=== PATIENT | male | born 1990 | race Caucasian/White ===

== ENCOUNTER 2022-03-29 10:48 | Outpatient (CLI) | payer OTHER ==
[2022-03-29 11:56] VITALS: BP 110/70
--- NOTE | 2022-03-29 11:56 | SLEEP CARE CONSULTATION ---
Information from patient questionnaire entered by Jacquelyn Barroso MA. I have reviewed and concur with the information entered by Jacquelyn Barroso MA. This document represents the service I personally performed and the decisions made by me, Micaela John ARNP. History of Present Illness Service Date and Time: 03/29/2022 1048 Reason for Visit: New patient (INTITIAL ONSET 07/08/21) Chief Complaint: reports: Insomnia, Unrefreshed sleep, Snoring, Observed pauses in breathing, Frequent awakenings at night, Other (Sleep paralysis) Date of Onset: 1 yr Usual bedtime: 12am Time it takes to fall asleep: 1 hr Snores at night: Yes Observed to quit breathing while asleep: Yes Sleeps alone due to snoring: No Number of times waking at night: 2-3 times Reasons for waking at night: reports: Snoring, Other (unknown; has woke up with a "feeling of fear" couple times in last few months). denies: Choking, Gasping for air Toss, Turn, or Twitch while sleeping: Yes Recalls having dreams: Yes Usually gets out of bed at: 7am Feels refreshed in the morning: No Morning headache: Yes (2 times a week; last 1-2 hrs to all day; sometimes takes Excedrine) Sleepy or fatigued during the day: Yes Ever fallen asleep while driving: Yes (drowsy driving; no accidents) Takes day naps: Yes (rarely on weekdays; occasional on weekends) Dreams during day naps: Yes Prior sleep studies: No Additional HPI information: I had the pleasure of seeing ISSA BAKER today regarding the possibility of him having a sleep disorder. His current complaints are snoring, frequent night awakenings and insomnia. He states that he is most concerned about the sleep paralysis that he is experiencing at least 2 times a week this last year. He gets them when he is falling asleep and when he is waking up. He has always had episodes of sleep paralysis but they used to be a couple times a month and now they are a couple times a week. He does snore loudly and has pauses in breathing when sleeping according to his girlfriend. He states he has trazodone 50 mg that he will take if he cannot fall asleep. He takes 45 mins to 1 hours to fall asleep normally. He wakes up a few times a night but can go back to sleep. He also experiences migraines after an episode of sleep paralysis. He does not wake up feeling rested normally. He is tired throughout the day and has experience drowsy driving. - Parasomnia Symptoms Ever been unable to move upon waking from sleep: Yes (2 times a week) Walks in sleep: No Talks in sleep: Yes Ever acted out dreams in sleep: No Ever felt weak in the knees when startled or emotional: Yes (has not fallen to ground; gets "shaky" feeling of body) Bothered by creepy, crawly, restless sensations in legs: No Problems with memory or concentration: Yes (little bit of both) Subjective Initial [place] Sleepiness Scale score: 18 (2021) Past Medical History Past Medical History: reports: Anxiety Social History The patient's occupation is a [employer]. Patient is Single and lives in . Have you smoked in the past 12 months: No (quit 3 years ago) Cigarettes per day (20/pack): 3 Years of smokin Smoking Pack Years: 1.0 Alcohol use: Yes Alcohol amount and frequency: 2-3 week Caffeine use: Yes Caffeine amount and frequency: 1 every 12 days, for workouts Family History Family history of sleep disordered breathing: No Family Hx Sleep Apnea: Father: Snoring, Sleep apnea - Untreated, Sibling: Snoring, Sleep apnea - Untreated Allergies and Home Medications Drug allergies reviewed: Yes (NKDA) Home medication list reviewed: Yes Allergy and home medication list: Medications: Trazodone 50 mg, prn Review of Systems Cardiovascular: reports: chest pain (random, sharp pain, 15 secs long; not often) Respiratory: reports: shortness of breath, wheeze Gastrointestinal: reports: heartburn Neurological: reports: headaches, head trauma (concussions, mild; in past) Psychiatric: reports: anxiety, depression Ear/Nose/Throat: reports: wisdom teeth removed. denies: sinus problems, dry mouth/throat, tonsillectomy Endocrine: reports: sluggishness Musculoskeletal: reports: joint pain, muscle pain or cramping Immunologic: reports: rash. denies: allergies to food or environment Physical Exam Vital signs obtained and entered by: SHEA Dwyer Blood Pressure: 110/70 (left arm) Cuff size: long Heart Rate: 83 O2 Saturation: 96 Height: 6 ft Weight: 222 lb Body Mass Index: 30.1 BMI Classification: Obese Neck circumference: 17 Mouth and throat: narrow oropharynx Soft palate: normal Hard palate: normal Uvula: normal Uvula visualization: 100% Mallampati Class I Tongue: enlarged in size with teeth burch on lateral edges Tonsils: small Neck: normal w/o lymphadenopathy or thyromegaly Heart: regular rate and rhythm Lungs: clear bilaterally Impression and Plan 1. Suspected Obstructive Sleep Apnea-Hypopnea Syndrome, as suggested by a history of loud and irregular snoring, observed cessation of breath while asleep, morning headache, frequent awakening during the night, unrefreshed sleep, cognitive impairment, and excessive daytime sleepiness. Narrow oropharynx and obesity are common predisposing factors for obstructive sleep apnea-hypopnea syndrome. I recommend proceeding to polysomnography to confirm the diagnosis and to assess severity. If the patient has significant sleep disordered breathing, a manual CPAP titration study will also be performed to find the optimal treatment pressure. I informed the patient of what the sleep studies involve and after some discussion, obtained agreement to proceed. The pathophysiology of obstructive sleep apnea-hypopnea syndrome was discussed with the patient and health risks of cardiovascular and cerebrovascular disease if not treated. Risks of drowsy driving discussed in detail and patient advised to avoid long distance driving and to tire groover at the first sign of drowsiness. Patient agreed to plan. * Schedule polysomnography * Avoid long distance driving or driving when feeling sleepy. * Avoid alcohol, sedative and muscle relaxant around bedtime. * Attempt to lose weight. * Review instructions provided by trained office staff on how to prepare for the sleep study. * Return for follow-up after sleep study completed. Counseling Topics: Weight loss health impact Visit Type: In Office (INTITIAL ONSET 07/08/21) Time Spent with Patient (minutes): 34 Provider Statement: I spent 100% of the Face to Face Visit with the patient with greater than 50% spent counseling the patient and coordination of care.
== END 2022-03-29 10:49 | disposition home or self-care (01) ==
LOC: SC 10:48
PROVIDERS: ATTEND Nurse Practitioner Family
DX: R06.83 Snoring (principal); G47.8 Other sleep disorders; R06.81 Apnea, not elsewhere classified; R51.9 Headache, unspecified; G47.10 Hypersomnia, unspecified; E66.9 Obesity, unspecified; Z68.30 Body mass index [BMI] 30.0-30.9, adult; Z87.891 Personal history of nicotine dependence
CPT/HCPCS: 99203; 99212

== ENCOUNTER 2022-05-06 20:38 | Outpatient (CLI) | payer OTHER | END 2022-05-06 20:39 | disposition home or self-care (01) | LOC: SC 20:38 | PROVIDERS: ATTEND Nurse Practitioner Family | DX: R06.83 Snoring (principal); G47.8 Other sleep disorders; R51.9 Headache, unspecified; G47.10 Hypersomnia, unspecified | CPT/HCPCS: 95810 ==

== ENCOUNTER 2022-07-12 12:49 | Outpatient (CLI) | payer OTHER ==
[2022-07-12 13:16] VITALS: BP 124/82
--- NOTE | 2022-07-12 13:16 | SLEEP CARE CONSULTATION ---
Information from patient questionnaire entered by Kim Villela. I have reviewed and concur with the information entered by Kim Villela. This document represents the service I personally performed and the decisions made by , Micaela John ARNP. History of Present Illness Service Date and Time: 07/12/2022 1249 Initial [place] Sleepiness Scale score: 18 (2021) Current [place] Sleepiness Scale score: 15 (07/12/22) Additional HPI information: ISSA BAKER returns for follow up and results of the recently performed polysomnography. The patient was informed of the following findings: No significant sleep disordered breathing with an average AHI of 2.1 and franc oxygen saturation of 92%. I explained the pathophysiology behind obstructive sleep apnea. Patient does not have sleep apnea and was advised how weight gain could increase the risk of developing sleep apnea in the future. I strongly advised weight loss. Patient has light snoring. Snoring can be reduced by weight loss. Weight loss is best achieved with diet consult. Patient instructed to contact PCP for referral. Snoring can also be treated with an oral appliance from a dentist. Advised to check insurance coverage. In addition, an ENT evaluation can be do to see if other treatment is indicated. Patient counseled not drink alcohol less than 4 hours before bedtime as it can increase snoring and apnea. Patient was cautioned about risks of drowsy driving until sleepiness symptoms resolve. Patient denies drowsy driving. Sleep Study - Results Type of Sleep Study: Polysomnography (COMLETED 05/06/22) Prior sleep studies: No Polysomnography/Home Sleep Study results: IMPRESSION: The quality of the study is good. The patient had reduced sleep efficiency due to a prolonged awakening in the middle of the night. The sleep architecture was normal. Respiratory monitoring showed no significant sleep disordered breathing (AHI = 2.1) or hypoxia (franc oxygen saturation of 92%). The few respiratory events occurred mainly during supine sleep (supine AHI = 3.8; non-supine = 1.10). Snore was infrequent and light in intensity. There was no significant periodic leg movement of sleep. Cardiac rhythm was normal sinus rhythm without significant arrhythmia. No abnormal behavior (parasomnia) observed during the night. Allergies and Home Medications Drug allergies reviewed: Yes (NKDA) Home medication list reviewed: Yes (no changes) Review of Systems Review of systems same as previous: Yes (no changes) Physical Exam Vital signs obtained and entered by: KIM Mar MA Blood Pressure: 124/82 (LEFT ARM) Cuff size: regular Heart Rate: 64 O2 Saturation: 96 Height: 6 ft Weight: 232 lb 6.4 oz Body Mass Index: 31.5 BMI Classification: Obese Impression and Plan 1. Insomnia, unspecified. Patient showed prolonged awakening during his sleep study and regularly takes up to 1 hour to fall asleep initially. His sleep efficiency was 73.4% during PSG. Insomnia is generally caused by an irregular sleep schedule, spending too much time in bed, napping, caffeine, electronics, lack of a relaxing bedtime ritual and clock watching. Other factors can include anxiety/depression, pain, medications, and obstructive sleep apnea. Patient is concerned that he still has incidences of sleep paralysis 1-2 times a week. Sleep paralysis upon awakening can be found in isolated incidences during REM sleep. The major cause of sleep paralysis is sleep deprivation which can be secondary to insomnia. Risk factors include young age, PTSD, chronic pain or depression. He does have a history of anxiety and was advised to visit with his PCP to review he current treatment plan. He voiced understanding and agreement. First I counseled the patient on the importance of a regular sleep schedule, starting with the wake time. I explained the homestatic sleep drive and how maintaining a regular wake time will allow the patient to be tired enough to sleep 15-16 hours later. By waking at the same time, the patient will also feel more alert. This can also be assisted by exposure to bright light for a minimum of 15 minutes a day upon waking. Most caffeine is to be stopped after lunch as it has a 6 hour half life and reduce sleep latency and efficiency. In addition, it is important to have a relaxing ritual about 30-60 minutes before bedtime to allow the mind/body transition from an active day to sleep. Electronics should be avoided 1-2 hours before bedtime as the bright light can reduce the endogenous melatonin and the activity of the computer, tablet, cell phone etc can be alerting. If unable to go to sleep in an estimated 20 minutes of more, it is advised to leave the bedroom and engage in a quiet activity until sleepy enough to return to bed. [facility] How to Sleep Better pamphlet given and reviewed information with patient. * Attempt to lose weight * Avoid alcohol consumption near bedtime * The patient is cautioned about driving until sleepiness is completely resolved. * Return as needed for follow up. Counseling Topics: Weight loss health impact Visit Type: In Office Time Spent with Patient (minutes): 18 Provider Statement: I spent 100% of the Face to Face Visit with the patient with greater than 50% spent counseling the patient and coordination of care.
== END 2022-07-12 12:50 | disposition home or self-care (01) ==
LOC: SC 12:49
PROVIDERS: ATTEND Nurse Practitioner Family
DX: G47.00 Insomnia, unspecified (principal); F41.9 Anxiety disorder, unspecified; R06.83 Snoring; E66.9 Obesity, unspecified; Z68.31 Body mass index [BMI] 31.0-31.9, adult; G47.53 Recurrent isolated sleep paralysis
CPT/HCPCS: 99212